=== PATIENT | female | born 1965 | race American Indian/Alaskan Native ===

== ENCOUNTER 2017-09-30 11:17 | Emergency (ER) | payer MEDICAID ==
[2017-09-30 11:17] VITALS: BMI 37.3
[2017-09-30 11:36] VITALS: RESP 18; TEMP 97.7; O2SAT 99
--- NOTE | 2017-09-30 12:29 | ED PDOC ---
HPI: Hypertension/Hypotension Time Seen by Provider: 09/30/17 11:39 Chief Complaint (Nursing): High Blood Pressure Chief Complaint (Provider): elevated BP History Per: Patient History/Exam Limitations: no limitations Current Symptoms Are (Timing): Gone Now Quality Of Symptoms: Asymptomatic Severity: None Additional Complaint(s): 52yo female sent from podiatry clinic for asymptomatic high blood pressure. States she took her dose of losartan this morning but always feels "nervous" in hospitals. States been having L neck pain in the mornings for several months, today consistent with prior and worse w movement. Denies chest pain, SOB, headache, weakness or numbness. States seeing podiatry for L charcot foot. Past Medical History Reviewed: Historical Data, Nursing Documentation, Vital Signs Vital Signs: Last Vital Signs Temp 97.7 F 09/30/17 11:29 Pulse 91 H 09/30/17 11:29 Resp 18 09/30/17 11:29 BP 154/90 H 09/30/17 11:29 Pulse Ox 99 09/30/17 11:29 - Medical History PMH: Arthritis, Diabetes, HTN Denies: Depression - Family History Family History: States: Unknown Family Hx - Social History Current smoker - smoking cessation education provided: No - Home Medications Home Medications: Ambulatory Orders Medication Instructions Recorded Glimepiride [Amaryl] 4 mg PO BID 12/15/16 Lisinopril/Hydrochlorothiazide 1 each PO DAILY 12/15/16 [Lisinopril-Hctz 20-12.5 mg Tab] - Allergies Allergies/Adverse Reactions: Allergies Allergy/AdvReac Type Severity Reaction Status Date / Time aspirin [From Ashley Aspirin] Allergy VOMITING Verified 12/15/16 11:50 calcium carbonate Allergy VOMITING Verified 12/15/16 11:50 [From Bufferin] magnesium [From Bufferin] Allergy VOMITING Verified 12/15/16 11:50 naproxen [From Aleve] Allergy VOMITING Verified 12/15/16 11:50 Review of Systems Constitutional: Negative for: Fever Cardiovascular: Negative for: Chest Pain, Palpitations Respiratory: Negative for: Cough, Shortness of Breath Gastrointestinal: Negative for: Abdominal Pain Genitourinary Female: Negative for: Dysuria Musculoskeletal: Positive for: Neck Pain, Foot Pain. Negative for: Shoulder Pain, Back Pain Skin: Negative for: Rash, Lesions, Jaundice Neurological: Negative for: Weakness, Numbness, Incoordination, Change in Speech , Headache, Dizziness Psych: Positive for: Anxiety. Negative for: Depression Physical Exam - Reviewed Nursing Documentation Reviewed: Yes - Physical Exam Appears: Positive for: Well, Non-toxic, No Acute Distress Head Exam: Positive for: ATRAUMATIC, NORMAL INSPECTION, NORMOCEPHALIC Skin: Positive for: Normal Color, Warm, DRY Eye Exam: Positive for: EOMI, Normal appearance, PERRL ENT: Positive for: Normal ENT Inspection Neck: Positive for: Normal, Painless ROM Cardiovascular/Chest: Positive for: Regular Rate, Rhythm Respiratory: Positive for: CNT, Normal Breath Sounds Gastrointestinal/Abdominal: Positive for: Normal Exam, Soft. Negative for: Tenderness Back: Positive for: Normal Inspection Extremity: Positive for: Normal ROM, Other (L foot in walking surgical shoe bandaged) Neurologic/Psych: Positive for: Alert, Oriented. Negative for: Motor/Sensory Deficits - ECG ECG: Positive for: Interpreted By Me ECG Rhythm: Positive for: Sinus Rhythm, Nonspecific Changes Rate: 84 O2 Sat by Pulse Oximetry: 99 Pulse Ox Interpretation: Normal Medical Decision Making Medical Decision Making: BP remains elevated but otherwise asymptomatic. tylenol ordered for chronic neck pain clonidine 0.1mg ordered for BP Patient does not want to stay in hospital any longer explained risks of uncontrolled BP and need for followup. Disposition - Clinical Impression Clinical Impression: Hypertension - Patient ED Disposition Is Patient to be Admitted: No Counseled Patient/Family Regarding: Studies Performed, Diagnosis, Need For Followup, Rx Given - Disposition Disposition: Routine/Home Disposition Time: 13:30 Condition: STABLE Additional Instructions: Continue blood pressure medication as directed. Return to ER for any new or worsening symptoms. Instructions: High Blood Pressure in Adults Forms: [employer] [facility] (Sen[place]alese)
[2017-09-30 12:34] VITALS: BP 157/97
--- NOTE | 2017-10-01 09:02 | CARD ---
APPROVED REPORT EKG Measurement Heart [id number] <Conclusion> Normal sinus rhythm Minimal voltage criteria for LVH, may be normal variant Inferior infarct, age undetermined Abnormal ECG
[2017-10-04 10:07] VITALS: PULSE 84
== END 2017-09-30 14:00 | disposition home or self-care (01) ==
LOC: H.ER 11:17
DX: I10 Essential (primary) hypertension (principal); E11.9 Type 2 diabetes mellitus without complications; Z79.84 Long term (current) use of oral hypoglycemic drugs; Z88.6 Allergy status to analgesic agent

== ENCOUNTER 2017-12-09 11:27 | Emergency (ER) | payer MEDICAID ==
[2017-12-09 11:27] VITALS: BMI 37.3
[2017-12-09 11:55] VITALS: BP 185/95; PULSE 87; RESP 20; TEMP 98.3; O2SAT 99
== END 2017-12-09 12:20 | disposition left against medical advice (07) ==
LOC: H.ER 11:27
DX: Z02.89 Encounter for other administrative examinations (principal)